=== PATIENT | male | born 1940 | race Caucasian/White ===

== ENCOUNTER 2019-03-07 15:07 | Emergency (ER) | payer OTHER ==
[~2019-03-07] VITALS: Ht 177.8 cm; Wt 99.8 kg
[2019-03-07 15:19] VITALS: Ht 177.8 cm; Wt 99.8 kg
[2019-03-07 18:33] VITALS: BP 132/75
== END 2019-03-07 18:33 | disposition home or self-care (01) ==
LOC: ED 15:07
DX: S16.1XXA Strain of muscle, fascia and tendon at neck level, initial encounter (principal); S09.8XXA Other specified injuries of head, initial encounter; J44.9 Chronic obstructive pulmonary disease, unspecified; F41.9 Anxiety disorder, unspecified; I10 Essential (primary) hypertension; E78.00 Pure hypercholesterolemia, unspecified; V43.62XA Car passenger injured in collision with other type car in traffic accident, initial encounter; Y93.I9 Activity, other involving external motion; Y92.488 Other paved roadways as the place of occurrence of the external cause; Y99.8 Other external cause status